=== PATIENT | female | born 1970 | race Two or more races ===

== ENCOUNTER 2023-06-08 16:41 | Emergency (ER) | payer OTHER ==
[2023-06-08] MEDS ORDERED: Ketorolac 60 MG/2 ML SDV IM ONE (17:57)
== END 2023-06-08 19:30 | disposition home or self-care (01) ==
LOC: JD.ED 16:41
DX: S82.832A Other fracture of upper and lower end of left fibula, initial encounter for closed fracture (principal); I10 Essential (primary) hypertension; E11.9 Type 2 diabetes mellitus without complications; E03.9 Hypothyroidism, unspecified; W01.0XXA Fall on same level from slipping, tripping and stumbling without subsequent striking against object, initial encounter
CPT/HCPCS: 73610-26-LT; 73610-LT; 96372; 99283; J1885